=== PATIENT | female | born 1970 | race Caucasian/White ===

== ENCOUNTER 2016-11-27 06:03 | Day surgery (SDC) | payer BC ==
[~2016-11-27] VITALS: Ht 160 cm; Wt 68.1 kg
[~2016-11-27 06:03] MED LIST: ENDOCET 5-3251 EACH PO; MULTIVITAMIN1 EAC2 PO; Motrin PO; NATALCARE RX1 TABLE1 PO; TYLENOL EXTRA500 MG PO; TYLENOL325 M1 PO; ZANTAC150 MG PO
[2016-11-27 08:06] VITALS: BP 142/76
[2016-11-27 16:03] VITALS: BP 107/62
== END 2016-11-27 17:59 | disposition home or self-care (01) ==
LOC: SDC 06:03 → RAD 07:00 → SDC 07:00 → 2SOUTH 13:11 → 2EAST 15:43
DX: C50.911 Malignant neoplasm of unspecified site of right female breast (principal); C77.3 Secondary and unspecified malignant neoplasm of axilla and upper limb lymph nodes; K21.9 Gastro-esophageal reflux disease without esophagitis; Z87.891 Personal history of nicotine dependence
CPT/HCPCS: 78195; 78999; 88309; A9541; G0378; J0131; J0330; J0690; J1100; J1170; J2175; J2250; J2405; J2765; J3010; S0020